=== PATIENT | male | born 1980 | race Two or more races ===

== ENCOUNTER 2016-05-28 19:00 | Emergency (ER) | payer OTHER ==
[2016-05-28] MEDS ORDERED: IOPAMIDOL 370 (76%) 100 ML VIAL IV ONE (19:01)
[2016-05-28] MEDS ORDERED: SODIUM CHLORIDE 0.9% 1,000 ML ONE (19:53)
[2016-05-28] MEDS ORDERED: KETOROLAC TROMETHAMINE 30 MG/ML 1 ML VIAL ONE (19:53)
[2016-05-28 20:04] LABS: PH,URINE 6.5 (5.0-8.0); URINE APPEARANCE CLEAR; URINE BILIRUBIN NEGATIVE (NEGATIVE); URINE BLOOD 1+ (NEGATIVE); URINE COLOR AMBER; URINE GLUCOSE (UA) 1+ (NEGATIVE); URINE LEUKOCYTE ESTERASE NEGATIVE (NEGATIVE); URINE NITRITE NEGATIVE (NEGATIVE); URINE PROTEIN 1+ (NEGATIVE); URINE UROBILINOGEN 4 mg/dL (0-1 mg/dl)
[2016-05-28 20:06] LABS: ABSOLUTE NEUTROPHIL COUNT 6.3 K/mm3 (1.8-7.7); BASO % 0.2 % (0.2-1.0); EOS # 0.1 (0.0-0.5); EOS % 0.6 % (0.9-2.9); HEMATOCRIT 39.9 % (32.0-52.0); HEMOGLOBIN 13.6 gm/l (14.0-18.0); IMM NEUT # 0.1 K/mm3 (0-0.2); IMM NEUT% 0.7 % (0-1); LYMPH # 0.8 (1.0-4.8); LYMPH % 10.2 % (15-45); MEAN CORPUSCULAR HEMOGLOBIN 32.4 pg (27.0-31.0); MEAN CORPUSCULAR HGB CONC 34.1 g/dl (33.0-37.0); MEAN PLATELET VOLUME 11.4 fl (7.4-10.4); MONO % 11.6 % (4-12); NEUT % 76.7 % (43-75); PLATELET COUNT 169 K/mm3 (130-400); RED CELL DISTRIBUTION WIDTH 12.4 % (11.5-14.5)
[2016-05-28 20:12] LABS: ALB/GLOB RATIO 1.5 (>1.0); ALBUMIN 3.8 gm/dL (3.5-5.7); CALCIUM 8.8 mg/dL (8.6-10.3)
[2016-05-28 20:18] LABS: URINE BACTERIA 1+; URINE EPITHELIAL CELLS 0-1 /hpf; URINE RBC 0-1 /hpf
--- NOTE | 2016-05-28 20:38 | CT ---
Name: RAE YATES Exam: CT abdomen pelvis with contrast Comparison: 12/27/2014 History: Abdominal pain Procedure: Helical CT using multidetector technique was applied to the abdomen and pelvis during intravenous administration of 100 cc Isovue-[id number]. No oral contrast was given per ordering physician. An automated dose reduction technique was used to minimize patient radiation dose. Findings: CT abdomen (contrast enhanced): Lung bases are clear. Heart is not enlarged. There is no pericardial effusion. Fatty infiltration liver is present. Gallbladder is not distended. There is no suspicious biliary dilation. Pancreas, spleen, adrenal glands, kidneys, aorta, IVC, portal vein, stomach, small bowel are normal. The appendix appears to be surgically absent. There is diverticulosis of the descending colon. There is no free air, free fluid or suspicious adenopathy. Regional skeleton is within normal limits. CT pelvis (contrast enhanced): Bladder is nearly empty. Prostate and seminal vesicles are normal. Diverticulosis of the colon is present. There are focal inflammatory changes of the distal descending colon and proximal most aspect of the sigmoid colon. Stranding is present. There is no free air, abscess or bowel obstruction. Findings are most consistent with a short segment of diverticulitis. Small bowel is within normal limits. There is no suspicious adenopathy. Impression: 1. Findings compatible with a short segment of acute diverticulitis of the descending colon and proximal sigmoid colon without current evidence for perforation, abscess or bowel obstruction 2. Prior appendectomy 3. Fatty infiltration of liver Note: The above report was uploaded to [facility]'s electronic medical records system at 2034 hours.
[2016-05-28] MEDS ORDERED: METRONIDAZOLE 500 MG/NS 100 ML 100 ML IV ONE (21:10)
[2016-05-28] MEDS ORDERED: SULFAMETHOXAZOLE 800 MG/TRIMETHOPRIM 160 MG TABLET ONE ×2 (21:10→21:11)
[2016-05-28] MEDS ORDERED: CEFTRIAXONE 1 GRAM DUPLEX 50 ML IV ONE (21:12)
== END 2016-05-28 22:51 | disposition home or self-care (01) ==
LOC: ED 19:00
DX: K57.92 Diverticulitis of intestine, part unspecified, without perforation or abscess without bleeding (principal)
CPT/HCPCS: 82150; 85025; 87086; 80053; 81001; 74177; 96375; 99284 ×2; 96374; 96361; A9270 ×2; J1885; J7030; Q9967; J0696